=== PATIENT | male | born 1980 | race Caucasian/White ===

== ENCOUNTER 2016-08-25 20:32 | Emergency (ER) | payer OTHER ==
[2016-08-25 20:37] VITALS: BP 135/82; PULSE 84; RESP 18; TEMP 98.3
--- NOTE | 2016-08-25 20:48 | ED ---
Extremity Problem HPI - General Chief complaint: Extremity Problem,Nontraumatic Stated complaint: Leg Swelling/Pain Time Seen by Provider: 08/25/16 20:39 Source: patient, RN notes reviewed Mode of arrival: wheelchair Limitations: no limitations - History of Present Illness Initial comments: 36-year-old male presents to the emergency Department chief complaint of left lateral knee pain and swelling. Patient states noticed the last 2 days. Patient is a week ago he did hit the front of his calf. Patient states his pain extending all along the back of his leg. He noticed more tenderness along the medial aspect and the lower ankle area. Patient denies any injury besides about one week ago. Patient states she was concerned due to the swelling and the pains without that he should be evaluated.Patient denies any recent fever, chills, shortness of breath, chest pain, back pain, abdominal pain, nausea vomiting, numbness or tingling, dysuria or hematuria, constipation or diarrhea, headaches or visual changes, or any other current symptoms. - Related Data Home Medications Medication Instructions Recorded Confirmed Nicotine 14Mg/24Hr Patch [Habitrol 1 patch TRANSDERM DAILY 08/25/16 08/25/16 14Mg/24Hr Patch] Allergies Allergy/AdvReac Type Severity Reaction Status Date / Time Fish Containing Products Allergy Swelling Verified 08/25/16 20:49 [Fish] Review of Systems ROS Statement: Those systems with pertinent positive or pertinent negative responses have been documented in the HPI. ROS Other: All systems not noted in ROS Statement are negative. Past Medical History Past Medical History: Asthma History of Any Multi-Drug Resistant Organisms: None Reported Past Surgical History: No Surgical Hx Reported Past Psychological History: Bipolar Smoking Status: Former smoker Past Alcohol Use History: None Reported Past Drug Use History: None Reported General Exam - General Exam Comments Initial Comments: General: The patient is awake and alert, in no distress, and does not appear acutely ill. Neck: The neck is supple, there is no tenderness. Cardiovascular: There is a regular rate and rhythm. No murmur, rub or gallop is appreciated. Respiratory: Lungs are clear to auscultation, respirations are non-labored, breath sounds are equal. No wheezes, stridor, rales, or rhonchi. Musculoskeletal: Sensation intact with 2+ pulses throughout the left lower externa. Full range of motion of left knee and left ankle. Patient has no noticeable swelling noted and negative Homans sign. Patient does have tenderness along the distal tibia medially. There does appear to be a healing abrasion to the anterior left estevez as well. 5 Out of 5 muscle strength testing throughout. Neurological: CN II-XII intact, There are no obvious motor or sensory deficits. Coordination appears grossly intact. Speech is normal. Skin: Skin is warm and dry and no rashes or lesions are noted. Psychiatric: Normal mood and affect. Limitations: no limitations Course Vital Signs 08/25/16 20:34 Temperature 98.3 F Pulse Rate 84 Respiratory 18 Rate Blood Pressure 135/82 O2 Sat by Pulse 99 Oximetry Medical Decision Making - Medical Decision Making 36-year-old male presents emergency Department chief complaint of left leg pain. we discussed X-ray and ultrasound are reviewed and negative. Patient most likely has a left estevez contusion from the injury about one week ago. We discussed ice Motrin Tylenol. We discussed return for hours and follow-up. We discussed all the family's questions and concerns. They stated they understood and all questions have been answered. They will be discharged home. - Radiology Data Radiology results: report reviewed, image reviewed Disposition Clinical Impression: Contusion of left ankle Disposition: HOME SELF-CARE Condition: Stable Instructions: Contusion in Adults (ED) Additional Instructions: Please use medication as discussed. Please follow up with family doctor if symptoms have not improved over the next two days. Please return to the emergency room if your symptoms increase or worsen or for any other concerns. Referrals: Mary Munoz MD [Primary Care Provider] - 1-2 days Time of Disposition: 21:37
--- NOTE | 2016-08-25 20:52 | XR ---
EXAMINATION TYPE: XR tibia fibula LT DATE OF EXAM: 08/25/2016 8:49 PM CLINICAL HISTORY: pain TECHNIQUE: AP and lateral images of the left tibia and fibula are obtained. COMPARISON: None. FINDINGS: There is no acute fracture/dislocation evident. The joint spaces appear within normal salas its. The overlying soft tissue appears unremarkable. IMPRESSION: There is no acute fracture or dislocation seen. ICD 10 NO FRACTURE, INITIAL EVALUATION
--- NOTE | 2016-08-25 21:36 | US ---
EXAMINATION TYPE: US venous doppler duplex LE LT DATE OF EXAM: 08/25/2016 8:43 PM COMPARISON: NONE CLINICAL HISTORY: Pain and swelling left leg. SIDE PERFORMED: Left TECHNIQUE: The lower extremity deep venous system is examined utilizing real time linear array sonog darin with graded compression, doppler sonography and color-flow sonography. VESSELS IMAGED: External Iliac Vein (EIV) Common Femoral Vein Deep Femoral Vein Greater Saphenous Vein * Femoral Vein Popliteal Vein Small Saphenous Vein * Proximal Calf Veins (* superficial vessels) Left Leg: Negative for DVT IMPRESSION: No evidence for DVT at this time.
== END 2016-08-25 21:41 | disposition home or self-care (01) ==
LOC: EC 20:32
DX: S90.02XA Contusion of left ankle, initial encounter (principal); Z87.891 Personal history of nicotine dependence; Z79.899 Other long term (current) drug therapy; Z91.013 Allergy to seafood; X58.XXXA Exposure to other specified factors, initial encounter
CPT/HCPCS: 99284

== ENCOUNTER → 2016-12-15 | Outpatient (CLI) | payer OTHER ==
[2016-12-15 14:03] LABS: Basophils # (A) 0.1 k/uL (0-0.2); Basophils % (A) 1 %; CH 31.1; CHCM 34.1; Eosinophils # (A) 0.3 k/uL (0-0.7); Eosinophils % (A) 2 %; HCT 52.9 % (39.0-53.0); HDW 2.51; HGB 17.3 gm/dL (13.0-17.5); Luc % (Auto) 2; Lymphocytes % (A) 16 %; MCH 29.9 pg (25.0-35.0); MCHC 32.7 g/dL (31.0-37.0); MCV 91.5 fL (80.0-100.0); Mean Platelet Volume 8.1; Monocytes # (A) 0.7 k/uL (0-1.0); Monocytes % (A) 5 %; Neutrophils # (A) 9.7 k/uL (1.3-7.7); Neutrophils % (A) 75 %; RBC 5.78 m/uL (4.30-5.90); RDW 13.8 % (11.5-15.5); WBC 12.9 k/uL (3.8-10.6); WBC (Perox) 12.99
[2016-12-15 14:48] LABS: Anion Gap 12 mmol/L; Blood Urea Nitrogen 12 mg/dL (9-20); Calcium 10.1 mg/dL (8.4-10.2); Carbon Dioxide 28 mmol/L (22-30); Chloride 106 mmol/L (98-107); Glucose 84 mg/dL (74-99); Non-African American GFR(MDRD) >60 (>60 ml/min/1.73 sqM); Sodium 146 mmol/L (137-145)
== END | disposition home or self-care (01) ==
LOC: LABPAT 13:20
PROVIDERS: ATTEND Physician Assistant
DX: Z01.812 Encounter for preprocedural laboratory examination (principal); N20.0 Calculus of kidney; R35.0 Frequency of micturition
CPT/HCPCS: 80048; 85025

== ENCOUNTER 2016-12-21 09:23 | Day surgery (SDC) | payer OTHER ==
--- NOTE | 2016-12-21 08:58 | XR ---
EXAMINATION TYPE: XR KUB DATE OF EXAM: 12/21/2016 COMPARISON: 11/10/2018 HISTORY: Left-sided renal stone with pain TECHNIQUE: One view abdominal series FINDINGS: The osseous structures are intact. The bowel gas pattern is nonspecific. Lung bases are clear. There is a 4.2 mm mid pole left renal calculus. IMPRESSION: 1. There is a 4.2 mm left midpole renal calculus.
[2016-12-21 09:21] VITALS: RESP 16; TEMP 97.7
[~2016-12-21 09:23] MED LIST: DEXAMETHASONE SOD PHOSPHATE 10 MG/ML 1 ML VIAL IV ONE; HYDROmorphone 1 MG/ML 1 ML SYRINGE IVP PRN; LACTATED RINGERS 1,000 ML IV SCH; LIDOCAINE 1% 20 ML VIAL (10MG/ML) FOR IV START INTRADERMA PRN; Pre Op ABX Message 1 EACH MISC MISCELLANE ONE; SCOPOLAMINE 1.5MG/72HR PATCH TRANSDERM ONE
[2016-12-21] MEDS ORDERED: fentaNYL (PF) 50 MCG/ML 2 ML AMP ONE (09:32)
[2016-12-21] MEDS ORDERED: KETAMINE 10 MG/ML 20 ML VIAL ONE (09:32)
[2016-12-21] MEDS ORDERED: PROPOFOL 10 MG/ML 20 ML VIAL IV ONE (09:32)
[2016-12-21] MEDS ORDERED: MIDAZOLAM 2 MG/2 ML VIAL ONE (09:32)
[2016-12-21] MEDS: LACTATED RINGERS 1,000 ML IV ONE (10:20)
[2016-12-21] MEDS ORDERED: SODIUM CHLORIDE 0.9% 1,000 ML IV ONE (10:20)
--- NOTE | 2016-12-21 10:26 | P.OP ---
Date of Procedure: 12/21/16 Preoperative Diagnosis: Left renal calculus Postoperative Diagnosis: Left renal calculus Procedure(s) Performed: Extracorporal shockwave lithotripsy Implants: Anesthesia: MAC Surgeon: Bo Jerez Pathology: none sent Condition: stable Disposition: PACU Indications for Procedure: Operative Findings: The patient is a 36 year old male with recent left flank pain who was noted to have a 7 mm calculus in the lateral midpole of the left kidney on a CT scan. It is unclear whether the calculus is located in a calyceal diverticulum. ESWL is planned for treatment. The patient was taken to the operating suite where intravenous sedation was given. Patient was placed in the supine position on the fluoroscopy table. The calculus in the lateral left kidney was localized using biplanar fluoroscopy. Lithotripsy was performed using the Dornier compact delta unit. Patient received 2500 shocks at level 5 at a rate of 60 shocks per minute. There appeared to be good fragmentation of the calculus. Anesthesia was reversed and the patient was returned to the recovery room awake and in satisfactory condition. The patient will be seen back in 4 days at which time time a KUB will be obtained. Description of Procedure:
[2016-12-21 11:13] VITALS: BP 130/85; PULSE 80
== END 2016-12-21 11:32 | disposition home or self-care (01) ==
LOC: ORWHC2ENDO 09:23
PROVIDERS: ATTEND Urology
DX: N20.0 Calculus of kidney (principal); Z84.2 Family history of other diseases of the genitourinary system; Z79.2 Long term (current) use of antibiotics; F17.200 Nicotine dependence, unspecified, uncomplicated
CPT/HCPCS: 74000; 50590; J2250; J1100; J3010; J2704

== ENCOUNTER 2016-12-25 16:59 | Emergency (ER) | payer OTHER ==
[2016-12-25] MEDS ORDERED: LORazepam 2 MG/ML SYRINGE IV STA (17:25)
[2016-12-25] MEDS ORDERED: MORPHINE SULFATE 4 MG/ML SYRINGE IVP STA (17:25)
[2016-12-25 17:27] LABS: Basophils # (A) 0.1 k/uL (0-0.2); Basophils % (A) 1 %; CH 31.4; CHCM 34.9; Eosinophils # (A) 0.4 k/uL (0-0.7); Eosinophils % (A) 4 %; HCT 52.9 % (39.0-53.0); HDW 2.56; HGB 17.7 gm/dL (13.0-17.5); Luc % (Auto) 2; Lymphocytes # (A) 3.2 k/uL (1.0-4.8); Lymphocytes % (A) 32 %; MCH 30.2 pg (25.0-35.0); MCHC 33.4 g/dL (31.0-37.0); MCV 90.4 fL (80.0-100.0); Mean Platelet Volume 8.2; Monocytes # (A) 0.6 k/uL (0-1.0); Monocytes % (A) 6 %; Neutrophils # (A) 5.5 k/uL (1.3-7.7); Neutrophils % (A) 56 %; RBC 5.85 m/uL (4.30-5.90); RDW 14.5 % (11.5-15.5); WBC 9.9 k/uL (3.8-10.6); WBC (Perox) 9.73
[2016-12-25] MEDS ORDERED: ACETAMINOPHEN IV (For NPO) 1,000 MG in EMPTY BAG 1 BAG IVPB STA (17:28)
[2016-12-25] MEDS ORDERED: ceFAZolin 2 GM in SODIUM CHLORIDE 0.9% 100 ML IVPB STA (17:29)
[2016-12-25 17:36] LABS: Partial Thromboplastin Time 23.5 sec (22.0-30.0); Prothrombin Time 10.4 sec (9.0-12.0)
[2016-12-25 17:37] LABS: AST 23 U/L (17-59); Alcohol <10 mg/dL; Alkaline Phosphatase 63 U/L (38-126); Amylase <30 U/L (30-110); Anion Gap 10 mmol/L; Blood Urea Nitrogen 9 mg/dL (9-20); Calcium 9.4 mg/dL (8.4-10.2); Carbon Dioxide 26 mmol/L (22-30); Chloride 105 mmol/L (98-107); Glucose 87 mg/dL (74-99); Non-African American GFR(MDRD) >60 (>60 ml/min/1.73 sqM); Potassium 4.4 mmol/L (3.5-5.1); Sodium 141 mmol/L (137-145); Total Bilirubin 0.3 mg/dL (0.2-1.3); Total Protein 6.5 g/dL (6.3-8.2)
[2016-12-25 17:37] LABS: Glucose,Whole Blood 111 mg/dL (75-99)
[2016-12-25 17:42] LABS: ALT 36 U/L (21-72)
[2016-12-25 17:47] LABS: Creatine Kinase 61 U/L (55-170)
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
[2016-12-25 18:00] LABS: Troponin I <0.012 ng/mL (0.000-0.034)
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
[2016-12-25] MEDS ORDERED: SODIUM CHLORIDE 0.9% 500 ML IV STA (18:23)
[2016-12-25] MEDS ORDERED: SODIUM CHLORIDE 0.9% 1,000 ML IV STA (18:23)
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
[2016-12-25] MEDS ORDERED: DIPH,PERTUS(ACELL)TETVAC-LF 0.5 ML VIAL IM ONE (19:04)
[2016-12-25 19:35] VITALS: BP 169/75; PULSE 90; RESP 16; TEMP 97.5
== END 2016-12-25 19:35 | disposition home or self-care (01) ==
LOC: EC 16:59
DX: S80.811A Abrasion, right lower leg, initial encounter (principal); M54.2 Cervicalgia; F17.200 Nicotine dependence, unspecified, uncomplicated; Z91.013 Allergy to seafood; Z23 Encounter for immunization; V89.2XXA Person injured in unspecified motor-vehicle accident, traffic, initial encounter; Y92.89 Other specified places as the place of occurrence of the external cause
CPT/HCPCS: 36415; 93005; 86900; 86901; 80053; 82150; 82550; 82553; 83605; 83690; 84484; 85025; 85610; 85730; 86850; 80320; 71010; 72170; 73590; 72125; 70450; 90715; 99285; 96365; 96375 ×3; 90471; J2060; J2270; J0690; J0131

== ENCOUNTER → 2016-12-25 | Outpatient (CLI) | payer OTHER ==
--- NOTE | 2016-12-25 10:52 | XR ---
EXAMINATION TYPE: XR abdomen 1V DATE OF EXAM: 12/25/2016 COMPARISON: NONE HISTORY: Post lithotripsy. Left-sided nephrolithiasis. TECHNIQUE: Single view supine abdominal radiograph was obtained. FINDINGS: The previously seen left renal calculus is no longer evident. No calcification is seen servando g the course of the left collecting system or within the urinary bladder. Osseous structures appear i ntact. Bowel gas pattern is nonobstructive. Mild degenerative changes of the femoral acetabular joint s are seen. IMPRESSION: Resolution of the previously seen left renal calculus, post lithotripsy, with no residual calculus along path of the left collecting system.
== END ==
LOC: RADXRMAIN 10:29
PROVIDERS: ATTEND Urology
DX: N20.0 Calculus of kidney (principal)
CPT/HCPCS: 74000

== ENCOUNTER 2017-02-01 19:53 | Emergency (ER) | payer OTHER ==
[2017-02-01 21:47] VITALS: RESP 18
[2017-02-01] MEDS ORDERED: SODIUM CHLORIDE 0.9% 2,000 ML IV STA (21:51)
[2017-02-01] MEDS ORDERED: FAMOTIDINE 20 MG/2 ML VIAL IV STA (22:14)
[2017-02-01] MEDS ORDERED: LIDOCAINE VISCOUS 2% 15 ML CUP MUCOUS MEM ONE (22:14)
[2017-02-01] MEDS ORDERED: MAG HYDROX/AL HYDROX/SIMETH 30 ML CUP PO ONE (22:14)
[2017-02-01] MEDS ORDERED: ONDANSETRON 4 MG/2 ML VIAL IVP STA (22:14)
--- NOTE | 2017-02-01 22:25 | ED ---
Abdominal Pain HPI - General Chief Complaint: Abdominal Pain Stated Complaint: Dizzy/Abd Pain Time Seen by Provider: 02/01/17 21:35 Source: patient Mode of arrival: ambulatory Limitations: no limitations - History of Present Illness Initial Comments: Patient presents with epigastric abdominal pain that he said started shortly after waking up this morning. Denies prior history of abdominal problems or abdominal surgeries. Denies history of liver disease, acid reflux, stomach ulcers. Patient admits to nausea but no vomiting. Patient states she has had decreased appetite today, mild nausea. Denies fevers, chills, changes in bowel movements, blood in the stool, changes in urination. She denies sick contacts, trauma, suspicious food intake. MD Complaint: abdominal pain Onset/Timin -: days(s) Location: epigastric Radiation: none Migration to: no migration Severity: moderate Quality: burning Consistency: constant Improves With: other (None tried) Associated Symptoms: nausea Treatments Prior to Arrival: other (None) - Related Data Home Medications Medication Instructions Recorded Confirmed Venlafaxine HCl [Effexor XR] 75 mg PO DAILY 02/01/17 02/01/17 traZODone HCL 50 mg PO HS 02/01/17 02/01/17 Previous Rx's Medication Instructions Recorded Ondansetron Odt [Zofran Odt] 4 mg PO Q8HR PRN #12 tab 02/01/17 Allergies Allergy/AdvReac Type Severity Reaction Status Date / Time Fish Containing Products Allergy Swelling Verified 02/01/17 21:38 [Fish] Review of Systems ROS Statement: Those systems with pertinent positive or pertinent negative responses have been documented in the HPI. ROS Other: All systems not noted in ROS Statement are negative. Constitutional: Denies: fever, chills, weakness Eyes: Denies: vision change ENT: Denies: throat pain, congestion Respiratory: Denies: cough, dyspnea Cardiovascular: Denies: chest pain, palpitations Endocrine: Denies: fatigue Gastrointestinal: Reports: abdominal pain, nausea. Denies: vomiting, diarrhea, constipation, hematemesis, melena, hematochezia Genitourinary: Denies: urgency, dysuria, frequency, hematuria Musculoskeletal: Denies: back pain Skin: Denies: rash Neurological: Denies: headache, weakness, confusion Past Medical History Past Medical History: Asthma History of Any Multi-Drug Resistant Organisms: None Reported Past Surgical History: No Surgical Hx Reported Past Psychological History: Bipolar Smoking Status: Current every day smoker Past Alcohol Use History: None Reported Past Drug Use History: None Reported General Exam Limitations: no limitations General appearance: alert, in no apparent distress, other (Sitting up in bed. No acute distress. Conversing normally. Not ill appearing. Calm, pleasant.) Head exam: Present: atraumatic, normocephalic Eye exam: Present: normal appearance, PERRL ENT exam: Present: normal oropharynx, normal external ear exam Neck exam: Present: normal inspection. Absent: tenderness Respiratory exam: Present: normal lung sounds bilaterally. Absent: respiratory distress, wheezes, rales Cardiovascular Exam: Present: regular rate, normal rhythm GI/Abdominal exam: Present: soft, tenderness (Minimal epigastric tenderness), normal bowel sounds. Absent: distended, guarding, rebound, rigid Extremities exam: Present: normal inspection Neurological exam: Present: alert, oriented X3 Psychiatric exam: Present: normal affect, normal mood Skin exam: Present: warm, dry, intact Course Vital Signs 02/01/17 02/01/17 02/01/17 20:07 21:42 22:35 Temperature 99.7 F H Pulse Rate 105 H 89 77 Respiratory 20 18 18 Rate Blood Pressure 126/82 135/89 123/80 O2 Sat by Pulse 99 97 95 Oximetry 02/01/17 23:27 Temperature Pulse Rate 92 Respiratory 18 Rate Blood Pressure 113/69 O2 Sat by Pulse 98 Oximetry Medical Decision Making - Medical Decision Making Patient has minimal epigastric tenderness, no distention, bowel sounds normal. Not feel patient has signs of obstruction or bowel perforation. Will obtain lab work. Patient given IV fluids, Pepcid, Maalox, Zofran. Blood cell count mildly elevated, UA and other lab work normal. Patient reassessed, states symptoms significantly improved status post meds. Patient symptoms may be secondary to viral gastritis. Patient agrees to follow-up with his primary care physician, return to ED if new or worsening symptoms. We'll give prescription for Zofran for home. Discussed need for oral rehydration. Return to ED if unable to tolerate by mouth intake. Patient is tenderness to palpation resolved on reexamination. Discharged at this time. - Lab Data Result diagrams: 02/01/17 22:00 02/01/17 22:00 Lab Results 02/01/17 02/01/17 02/01/17 Range/Units 22:00 22:00 22:43 WBC 13.0 H (3.8-10.6) k/uL RBC 6.01 H (4.30-5.90) m/uL Hgb 18.3 H (13.0-17.5) gm/dL Hct 54.8 H (39.0-53.0) % MCV 91.2 (80.0-100.0) fL MCH 30.5 (25.0-35.0) pg MCHC 33.4 (31.0-37.0) g/dL RDW 13.4 (11.5-15.5) % Plt Count 232 (150-450) k/uL Neutrophils % 72 % Lymphocytes % 21 % Monocytes % 4 % Eosinophils % 1 % Basophils % 1 % Neutrophils # 9.3 H (1.3-7.7) k/uL Lymphocytes # 2.8 (1.0-4.8) k/uL Monocytes # 0.6 (0-1.0) k/uL Eosinophils # 0.1 (0-0.7) k/uL Basophils # 0.1 (0-0.2) k/uL Sodium 140 (137-145) mmol/L Potassium 4.2 (3.5-5.1) mmol/L Chloride 105 (98-107) mmol/L Carbon Dioxide 28 (22-30) mmol/L Anion Gap 7 mmol/L BUN 10 (9-20) mg/dL Creatinine 0.88 (0.66-1.25) mg/dL Est GFR (MDRD) Af Amer >60 (>60 ml/min/1.73 sqM) Est GFR (MDRD) Non-Af >60 (>60 ml/min/1.73 sqM) Glucose 98 (74-99) mg/dL Calcium 9.0 (8.4-10.2) mg/dL Total Bilirubin 0.2 (0.2-1.3) mg/dL AST 21 (17-59) U/L ALT 25 (21-72) U/L Alkaline Phosphatase 48 (38-126) U/L Total Protein 5.4 L (6.3-8.2) g/dL Albumin 3.1 L (3.5-5.0) g/dL Lipase 115 (23-300) U/L Urine Color Yellow Urine Appearance Clear (Clear) Urine pH 6.0 (5.0-8.0) Ur Specific [place] 1.020 (1.001-1.035) Urine Protein Negative (Negative) Urine Glucose (UA) Negative (Negative) Urine Ketones Negative (Negative) Urine Blood Negative (Negative) Urine Nitrite Negative (Negative) Urine Bilirubin Negative (Negative) Urine Urobilinogen 2.0 (<2.0) mg/dL Ur Leukocyte Esterase Negative (Negative) Disposition Clinical Impression: Abdominal pain Disposition: HOME SELF-CARE Condition: Good Instructions: Abdominal Pain (ED) Prescriptions: Ondansetron Odt [Zofran Odt] 4 mg PO Q8HR PRN #12 tab PRN Reason: Nausea And Vomiting Referrals: Mary Munoz MD [Primary Care Provider] - 1-2 days
[2017-02-01 22:29] LABS: Basophils # (A) 0.1 k/uL (0-0.2); Basophils % (A) 1 %; CH 30.6; CHCM 33.7; Eosinophils # (A) 0.1 k/uL (0-0.7); Eosinophils % (A) 1 %; HCT 54.8 % (39.0-53.0); HDW 2.46; HGB 18.3 gm/dL (13.0-17.5); Luc # (Auto) 0.16; Luc % (Auto) 1; Lymphocytes # (A) 2.8 k/uL (1.0-4.8); Lymphocytes % (A) 21 %; MCH 30.5 pg (25.0-35.0); MCHC 33.4 g/dL (31.0-37.0); MCV 91.2 fL (80.0-100.0); Mean Platelet Volume 7.5; Monocytes # (A) 0.6 k/uL (0-1.0); Monocytes % (A) 4 %; Neutrophils # (A) 9.3 k/uL (1.3-7.7); Neutrophils % (A) 72 %; RBC 6.01 m/uL (4.30-5.90); RDW 13.4 % (11.5-15.5); WBC (Perox) 12.53
[2017-02-01 22:39] LABS: ALT 25 U/L (21-72); AST 21 U/L (17-59); Alkaline Phosphatase 48 U/L (38-126); Anion Gap 7 mmol/L; Blood Urea Nitrogen 10 mg/dL (9-20); Carbon Dioxide 28 mmol/L (22-30); Chloride 105 mmol/L (98-107); Glucose 98 mg/dL (74-99); Non-African American GFR(MDRD) >60 (>60 ml/min/1.73 sqM); Potassium 4.2 mmol/L (3.5-5.1); Sodium 140 mmol/L (137-145); Total Bilirubin 0.2 mg/dL (0.2-1.3); Total Protein 5.4 g/dL (6.3-8.2)
[2017-02-01 22:55] LABS: Appearance,Urine Clear (Clear); Bilirubin,Urine Negative (Negative); Glucose,Urine (UA) Negative (Negative); Ketones,Urine Negative (Negative); Leukocyte Esterase,Urine Negative (Negative); Nitrite,Urine Negative (Negative); Protein,Urine Negative (Negative); UA Billing (MACRO vs. MICRO) CHEM
[2017-02-02 00:13] VITALS: BP 115/67; PULSE 88; TEMP 98.6
== END 2017-02-02 00:47 | disposition home or self-care (01) ==
LOC: EC 19:53
DX: R10.13 Epigastric pain (principal); R11.0 Nausea; R63.0 Anorexia; F31.9 Bipolar disorder, unspecified; F17.200 Nicotine dependence, unspecified, uncomplicated; Z79.899 Other long term (current) drug therapy; Z91.013 Allergy to seafood
CPT/HCPCS: 96361 ×3; 96374 ×2; 96375 ×2; 99284 ×2; 36415; 80053; 83690; 85025; 81003; J2405

== ENCOUNTER 2017-02-21 20:22 | Emergency (ER) | payer OTHER ==
[2017-02-21] MEDS ORDERED: PANTOPRAZOLE 40 MG/10 ML VIAL IVP STA (21:02)
[2017-02-21] MEDS ORDERED: SODIUM CHLORIDE 0.9% 1,000 ML IV STA (21:02)
[2017-02-21] MEDS ORDERED: ONDANSETRON 4 MG/2 ML VIAL IVP STA (21:02)
[2017-02-21] MEDS ORDERED: RX INFO: IV CONTRAST WAS GIVEN 1 EACH MISC MISCELLANE PRN (21:03)
--- NOTE | 2017-02-21 21:09 | ED ---
GI Bleed HPI - General Chief complaint: GI Bleed Stated complaint: Vomiting Blood Time Seen by Provider: 02/21/17 20:46 Source: patient, RN notes reviewed Mode of arrival: ambulatory Limitations: no limitations - History of Present Illness Initial comments: 36-year-old male presents emergency Department chief complaint abdominal discomfort, nausea, hematemesis. Patient states that he woke up did not feel well states he had an episode of vomiting states it was mostly phlegm with some speckled red areas. Patient went of epigastric discomfort and some lower abdominal pain. Patient had recent ER visit for some her symptoms. Patient did admit to or taking trazodone this past week and states that he was trying to harm himself at that time he was seen by his therapist who felt that he was stable did not need inpatient treatment his medications are now controlled by family. Patient denies suicidal or homicidal ideation. Patient denies any history of GERD or peptic ulcer disease. Patient states he did have some pain radiating up his chest with denies any shortness breath or any palpitations. He denies any diarrhea, constipation, melena or hematochezia. - Related Data Home Medications Medication Instructions Recorded Confirmed Venlafaxine HCl [Effexor XR] 75 mg PO DAILY 02/01/17 02/21/17 traZODone HCL [Desyrel] 100 mg PO HS 02/21/17 02/21/17 Previous Rx's Medication Instructions Recorded Omeprazole 40 mg PO DAILY #14 capsule. 02/21/17 Ondansetron Odt [Zofran Odt] 4 mg PO Q8HR PRN #10 tab 02/21/17 Allergies Allergy/AdvReac Type Severity Reaction Status Date / Time Fish Containing Products Allergy Swelling Verified 02/21/17 20:47 [Fish] Review of Systems ROS Statement: Those systems with pertinent positive or pertinent negative responses have been documented in the HPI. ROS Other: All systems not noted in ROS Statement are negative. Past Medical History Past Medical History: Asthma History of Any Multi-Drug Resistant Organisms: None Reported Past Surgical History: No Surgical Hx Reported Past Psychological History: Bipolar Smoking Status: Current every day smoker Past Alcohol Use History: None Reported Past Drug Use History: None Reported General Exam Limitations: no limitations General appearance: alert, in no apparent distress Head exam: Present: atraumatic, normocephalic, normal inspection Neck exam: Present: normal inspection, full ROM. Absent: tenderness, meningismus, lymphadenopathy Respiratory exam: Present: normal lung sounds bilaterally. Absent: respiratory distress, wheezes, rales, rhonchi, stridor Cardiovascular Exam: Present: regular rate, normal rhythm, normal heart sounds. Absent: systolic murmur, diastolic murmur, rubs, gallop, clicks GI/Abdominal exam: Present: soft, tenderness (Moderate epigastric), normal bowel sounds. Absent: distended, guarding, rebound, rigid Back exam: Absent: CVA tenderness (R), CVA tenderness (L) Skin exam: Present: warm, dry, intact, normal color. Absent: rash Course Vital Signs 02/21/17 02/21/17 20:28 22:37 Temperature 98.7 F 97.8 F Pulse Rate 96 78 Respiratory 16 18 Rate Blood Pressure 131/89 118/58 O2 Sat by Pulse 97 98 Oximetry Medical Decision Making - Medical Decision Making 36-year-old male present emergency department for episode of hematemesis. It was mixed in within sputum, emesis. Patient's labwork is unremarkable. Patient may have some evidence of gastritis. Patient was started on omeprazole daily, Zofran and follow up outpatient. Return parameters discussed. - Lab Data Result diagrams: 02/21/17 21:14 02/21/17 21:14 Lab Results 02/21/17 02/21/17 02/21/17 Range/Units 21:14 21:14 21:14 WBC 9.7 (3.8-10.6) k/uL RBC 5.29 (4.30-5.90) m/uL Hgb 16.2 (13.0-17.5) gm/dL Hct 47.8 (39.0-53.0) % MCV 90.5 (80.0-100.0) fL MCH 30.6 (25.0-35.0) pg MCHC 33.8 (31.0-37.0) g/dL RDW 13.2 (11.5-15.5) % Plt Count 281 (150-450) k/uL Neutrophils % 66 % Lymphocytes % 24 % Monocytes % 6 % Eosinophils % 2 % Basophils % 1 % Neutrophils # 6.4 (1.3-7.7) k/uL Lymphocytes # 2.4 (1.0-4.8) k/uL Monocytes # 0.6 (0-1.0) k/uL Eosinophils # 0.2 (0-0.7) k/uL Basophils # 0.1 (0-0.2) k/uL PT (9.0-12.0) sec INR (<1.2) APTT (22.0-30.0) sec Sodium 139 (137-145) mmol/L Potassium 4.2 (3.5-5.1) mmol/L Chloride 107 (98-107) mmol/L Carbon Dioxide 26 (22-30) mmol/L Anion Gap 6 mmol/L BUN 9 (9-20) mg/dL Creatinine 1.10 (0.66-1.25) mg/dL Est GFR (MDRD) Af Amer >60 (>60 ml/min/1.73 sqM) Est GFR (MDRD) Non-Af >60 (>60 ml/min/1.73 sqM) Glucose 86 (74-99) mg/dL Calcium 9.2 (8.4-10.2) mg/dL Magnesium 1.9 (1.6-2.3) mg/dL Total Bilirubin 0.2 (0.2-1.3) mg/dL AST 20 (17-59) U/L ALT 26 (21-72) U/L Alkaline Phosphatase 55 (38-126) U/L Total Creatine Kinase 97 (55-170) U/L CK-MB (CK-2) 0.8 (0.0-2.4) ng/mL CK-MB (CK-2) Rel Index 0.8 Troponin I <0.012 (0.000-0.034) ng/mL Total Protein 5.6 L (6.3-8.2) g/dL Albumin 3.3 L (3.5-5.0) g/dL Lipase 121 (23-300) U/L 02/21/17 Range/Units 21:14 WBC (3.8-10.6) k/uL RBC (4.30-5.90) m/uL Hgb (13.0-17.5) gm/dL Hct (39.0-53.0) % MCV (80.0-100.0) fL MCH (25.0-35.0) pg MCHC (31.0-37.0) g/dL RDW (11.5-15.5) % Plt Count (150-450) k/uL Neutrophils % % Lymphocytes % % Monocytes % % Eosinophils % % Basophils % % Neutrophils # (1.3-7.7) k/uL Lymphocytes # (1.0-4.8) k/uL Monocytes # (0-1.0) k/uL Eosinophils # (0-0.7) k/uL Basophils # (0-0.2) k/uL PT 10.0 (9.0-12.0) sec INR 1.0 (<1.2) APTT 23.2 (22.0-30.0) sec Sodium (137-145) mmol/L Potassium (3.5-5.1) mmol/L Chloride (98-107) mmol/L Carbon Dioxide (22-30) mmol/L Anion Gap mmol/L BUN (9-20) mg/dL Creatinine (0.66-1.25) mg/dL Est GFR (MDRD) Af Amer (>60 ml/min/1.73 sqM) Est GFR (MDRD) Non-Af (>60 ml/min/1.73 sqM) Glucose (74-99) mg/dL Calcium (8.4-10.2) mg/dL Magnesium (1.6-2.3) mg/dL Total Bilirubin (0.2-1.3) mg/dL AST (17-59) U/L ALT (21-72) U/L Alkaline Phosphatase (38-126) U/L Total Creatine Kinase (55-170) U/L CK-MB (CK-2) (0.0-2.4) ng/mL CK-MB (CK-2) Rel Index Troponin I (0.000-0.034) ng/mL Total Protein (6.3-8.2) g/dL Albumin (3.5-5.0) g/dL Lipase (23-300) U/L 02/21/17 21:38 EKG performed at 21:08 normal sinus rhythm with rate of 83 [place] interval 136 QRS duration 94 QT/QTC 338/397 Disposition Clinical Impression: Abdominal pain, Gastritis Disposition: HOME SELF-CARE Condition: Stable Instructions: Gastritis (ED) Additional Instructions: Please return to the Emergency Department if symptoms worsen or any other concerns. Prescriptions: Omeprazole 40 mg PO DAILY #14 capsule. Ondansetron Odt [Zofran Odt] 4 mg PO Q8HR PRN #10 tab PRN Reason: Nausea Referrals: Mary Munoz MD [Primary Care Provider] - 1-2 days Linh Thomas MD [STAFF PHYSICIAN] - 1-2 days Time of Disposition: 22:57
[2017-02-21 21:32] LABS: Basophils # (A) 0.1 k/uL (0-0.2); Basophils % (A) 1 %; CH 30.5; CHCM 33.9; Eosinophils # (A) 0.2 k/uL (0-0.7); Eosinophils % (A) 2 %; HCT 47.8 % (39.0-53.0); HDW 2.59; HGB 16.2 gm/dL (13.0-17.5); Luc # (Auto) 0.14; Luc % (Auto) 1; Lymphocytes # (A) 2.4 k/uL (1.0-4.8); Lymphocytes % (A) 24 %; MCH 30.6 pg (25.0-35.0); MCHC 33.8 g/dL (31.0-37.0); MCV 90.5 fL (80.0-100.0); Mean Platelet Volume 7.5; Monocytes # (A) 0.6 k/uL (0-1.0); Monocytes % (A) 6 %; Neutrophils # (A) 6.4 k/uL (1.3-7.7); Neutrophils % (A) 66 %; RBC 5.29 m/uL (4.30-5.90); RDW 13.2 % (11.5-15.5); WBC 9.7 k/uL (3.8-10.6); WBC (Perox) 9.37
[2017-02-21 21:41] LABS: Partial Thromboplastin Time 23.2 sec (22.0-30.0)
--- NOTE | 2017-02-21 21:42 | XR ---
EXAMINATION TYPE: XR chest 2V DATE OF EXAM: 02/21/2017 COMPARISON: NONE HISTORY: Vomiting blood with upper abdominal and chest pain. History of syncope. TECHNIQUE: Frontal and lateral views of the chest are obtained. FINDINGS: There is no focal air space opacity, pleural effusion, or pneumothorax seen. The cardiac silhouette size is within normal limits. The osseous structures are intact. IMPRESSION: No acute cardiopulmonary process.
[2017-02-21 21:48] LABS: ALT 26 U/L (21-72); AST 20 U/L (17-59); Alkaline Phosphatase 55 U/L (38-126); Anion Gap 6 mmol/L; Blood Urea Nitrogen 9 mg/dL (9-20); Calcium 9.2 mg/dL (8.4-10.2); Carbon Dioxide 26 mmol/L (22-30); Chloride 107 mmol/L (98-107); Glucose 86 mg/dL (74-99); Magnesium 1.9 mg/dL (1.6-2.3); Non-African American GFR(MDRD) >60 (>60 ml/min/1.73 sqM); Potassium 4.2 mmol/L (3.5-5.1); Sodium 139 mmol/L (137-145); Total Bilirubin 0.2 mg/dL (0.2-1.3); Total Protein 5.6 g/dL (6.3-8.2)
[2017-02-21 21:57] LABS: Creatine Kinase 97 U/L (55-170)
--- NOTE | 2017-02-21 22:08 | CT ---
EXAMINATION TYPE: CT abdomen pelvis w con DATE OF EXAM: 02/21/2017 COMPARISON: NONE HISTORY: Epigastric pain and vomiting blood today. CT DLP: 687.20 mGycm Automated exposure control for dose reduction was used. TECHNIQUE: Helical acquisition of images was performed from the lung bases through the pelvis. CONTRAST: Performed without Oral Contrast and with IV Contrast, patient injected with 100 mL of Omnipaque 300. FINDINGS: LUNG BASES: No significant abnormality is appreciated. LIVER/GB: No significant abnormality is appreciated. PANCREAS: No significant abnormality is seen. SPLEEN: No significant abnormality is seen. ADRENALS: No significant abnormality is seen. KIDNEYS: No significant abnormality is seen. Symmetric enhancement and excretion are noted. FREE AIR: No free air is visualized. RETROPERITONEAL ADENOPATHY: None visualized REPRODUCTIVE ORGANS: No significant abnormality is seen URINARY BLADDER: No significant abnormality is seen. PELVIC ADENOPATHY: None visualized. OSSEOUS STRUCTURES: No significant abnormality is seen. BOWEL: No significant abnormality is seen. A normal appendix is identified. OTHER: Fat filled umbilical hernia is present. Prostate measures 4 cm in transverse dimension. IMPRESSION: ESSENTIALLY UNREMARKABLE EXAMINATION.
[2017-02-21 22:10] LABS: Creatine Kinase MB 0.8 ng/mL (0.0-2.4); Troponin I <0.012 ng/mL (0.000-0.034)
[2017-02-21 22:39] VITALS: BP 118/58; PULSE 78; RESP 18; TEMP 97.8
== END 2017-02-21 23:01 | disposition home or self-care (01) ==
LOC: EC 20:22
DX: K29.70 Gastritis, unspecified, without bleeding (principal); F31.9 Bipolar disorder, unspecified; F17.200 Nicotine dependence, unspecified, uncomplicated; Z79.899 Other long term (current) drug therapy; Z91.013 Allergy to seafood
CPT/HCPCS: 99285 ×2; 96374 ×2; 96375 ×2; 96361 ×2; 36415; 93005; 80053; 82550; 82553; 83690; 83735; 84484; 85025; 85610; 85730; 71020; 74177; J2405; Q9967; C9113

== ENCOUNTER 2017-04-02 13:52 | Emergency (ER) | payer OTHER ==
[2017-04-02 14:04] VITALS: BP 140/78; PULSE 131; RESP 17; TEMP 97.7
[2017-04-02] MEDS ORDERED: SODIUM CHLORIDE 0.9% 500 ML IV STA (14:18)
[2017-04-02] MEDS ORDERED: SODIUM CHLORIDE 0.9% 1,000 ML IV STA (14:18)
[2017-04-02] MEDS ORDERED: LORazepam 2 MG/ML INJ IV STA (14:18)
--- NOTE | 2017-04-02 14:47 | ED ---
General Adult HPI - General Chief complaint: Psychiatric Symptoms Stated complaint: Mental Health Time Seen by Provider: 04/02/17 13:54 Source: patient, EMS, RN notes reviewed, old records reviewed Mode of arrival: EMS Limitations: no limitations - History of Present Illness Initial comments: This is a 37-year-old male to the ER for evaluation of overdose. Patient did overdose in regards to psychiatric disease, patient today has tried To kill himself. Patient does have history of psychiatric evaluation. Patient denies drugs or alcohol. Patient does admit to overdose (account medication tonight - Related Data Home Medications Medication Instructions Recorded Confirmed Amoxicillin 500 mg PO Q8H 04/02/17 04/02/17 HYDROcodone/APAP 7.5-325MG [[place] 1 tab PO Q4H PRN 04/02/17 04/02/17 7.5-325] Ibuprofen [Motrin] 800 mg PO Q6H PRN 04/02/17 04/02/17 Previous Rx's Medication Instructions Recorded ARIPiprazole [Abilify] 5 mg PO DAILY #30 tab 02/26/17 Venlafaxine HCl [Effexor XR] 75 mg PO DAILY #30 cap.er.24h 02/26/17 traZODone HCL [Desyrel] 100 mg PO HS #30 tab 02/26/17 Allergies Allergy/AdvReac Type Severity Reaction Status Date / Time Fish Containing Products Allergy Swelling Verified 04/02/17 14:08 [Fish] Review of Systems ROS Statement: Those systems with pertinent positive or pertinent negative responses have been documented in the HPI. ROS Other: All systems not noted in ROS Statement are negative. Past Medical History Past Medical History: Asthma Additional Past Medical History / Comment(s): bipolar/depression, lt sided kidney stone History of Any Multi-Drug Resistant Organisms: None Reported Past Surgical History: No Surgical Hx Reported Additional Past Surgical History / Comment(s): lithotripsy Past Anesthesia/Blood Transfusion Reactions: No Reported Reaction Past Psychological History: Bipolar, Depression Smoking Status: Current every day smoker - Past Family History Father History Unknown: Yes Mother History Unknown: Yes General Exam Limitations: no limitations General appearance: alert, in no apparent distress Head exam: Present: atraumatic, normocephalic, normal inspection Eye exam: Present: normal appearance, PERRL, EOMI. Absent: scleral icterus, conjunctival injection, periorbital swelling ENT exam: Present: normal exam, mucous membranes moist Neck exam: Present: normal inspection. Absent: tenderness, meningismus, lymphadenopathy Respiratory exam: Present: normal lung sounds bilaterally. Absent: respiratory distress, wheezes, rales, rhonchi, stridor Cardiovascular Exam: Present: regular rate, normal rhythm, normal heart sounds. Absent: systolic murmur, diastolic murmur, rubs, gallop, clicks GI/Abdominal exam: Present: soft, normal bowel sounds. Absent: distended, tenderness, guarding, rebound, rigid Extremities exam: Present: normal inspection, full ROM, normal capillary refill. Absent: tenderness, pedal edema, joint swelling, calf tenderness Back exam: Present: normal inspection Neurological exam: Present: alert, oriented X3, CN II-XII intact Psychiatric exam: Present: normal affect, normal mood Skin exam: Present: warm, dry, intact, normal color. Absent: rash Course Vital Signs 04/02/17 14:02 Temperature 97.7 F Pulse Rate 131 H Respiratory 17 Rate Blood Pressure 140/78 O2 Sat by Pulse 94 L Oximetry - Reevaluation(s) Reevaluation #1: 04/02/17 14:46 patient is clear for psychiatric eval EKG Findings - EKG Comments: EKG Findings:: EKG shows normal sinus rhythm rate of 100, [place] 126, QRS 94, QTC 428 Medical Decision Making - Medical Decision Making 37 male ER for psychiatric evaluation. Patient left emergency Department, eloped - Lab Data Result diagrams: 04/02/17 14:40 04/02/17 14:40 Lab Results 04/02/17 04/02/17 04/02/17 Range/Units 14:40 14:40 14:40 WBC 10.0 (3.8-10.6) k/uL RBC 5.48 (4.30-5.90) m/uL Hgb 16.4 (13.0-17.5) gm/dL Hct 50.1 (39.0-53.0) % MCV 91.5 (80.0-100.0) fL MCH 30.0 (25.0-35.0) pg MCHC 32.8 (31.0-37.0) g/dL RDW 14.2 (11.5-15.5) % Plt Count 330 (150-450) k/uL Neutrophils % 80 % Lymphocytes % 14 % Monocytes % 4 % Eosinophils % 2 % Basophils % 1 % Neutrophils # 8.0 H (1.3-7.7) k/uL Lymphocytes # 1.4 (1.0-4.8) k/uL Monocytes # 0.4 (0-1.0) k/uL Eosinophils # 0.2 (0-0.7) k/uL Basophils # 0.1 (0-0.2) k/uL PT (9.0-12.0) sec INR (<1.2) Sodium 140 (137-145) mmol/L Potassium 4.2 (3.5-5.1) mmol/L Chloride 105 (98-107) mmol/L Carbon Dioxide 28 (22-30) mmol/L Anion Gap 7 mmol/L BUN 11 (9-20) mg/dL Creatinine 1.00 (0.66-1.25) mg/dL Est GFR (MDRD) Af Amer >60 (>60 ml/min/1.73 sqM) Est GFR (MDRD) Non-Af >60 (>60 ml/min/1.73 sqM) Glucose 117 H (74-99) mg/dL Calcium 9.3 (8.4-10.2) mg/dL Phosphorus 2.4 L (2.5-4.5) mg/dL Magnesium 2.1 (1.6-2.3) mg/dL Total Bilirubin 0.2 (0.2-1.3) mg/dL AST 21 (17-59) U/L ALT 26 (21-72) U/L Alkaline Phosphatase 55 (38-126) U/L Total Creatine Kinase 60 (55-170) U/L CK-MB (CK-2) 0.3 (0.0-2.4) ng/mL CK-MB (CK-2) Rel Index 0.5 Total Protein 6.3 (6.3-8.2) g/dL Albumin 3.6 (3.5-5.0) g/dL Lipase 52 (23-300) U/L Urine Color Urine Appearance (Clear) Urine pH (5.0-8.0) Ur Specific [place] (1.001-1.035) Urine Protein (Negative) Urine Glucose (UA) (Negative) Urine Ketones (Negative) Urine Blood (Negative) Urine Nitrite (Negative) Urine Bilirubin (Negative) Urine Urobilinogen (<2.0) mg/dL Ur Leukocyte Esterase (Negative) Urine RBC (0-5) /hpf Urine WBC (0-5) /hpf Urine Bacteria (None) /hpf Hyaline Casts (0-2) /lpf Urine Mucus (None) /hpf Salicylates <1.0 mg/dL Urine Opiates Screen (NotDetected) Ur Oxycodone Screen (NotDetected) Urine Methadone Screen (NotDetected) Ur Propoxyphene Screen (NotDetected) Acetaminophen <10.0 ug/mL Ur Barbiturates Screen (NotDetected) U Tricyclic Antidepress (NotDetected) Ur Phencyclidine Scrn (NotDetected) Ur Amphetamines Screen (NotDetected) U Methamphetamines Scrn (NotDetected) U Benzodiazepines Scrn (NotDetected) Urine Cocaine Screen (NotDetected) U Marijuana (THC) Screen (NotDetected) Serum Alcohol <10 mg/dL 04/02/17 04/02/17 Range/Units 14:40 14:40 WBC (3.8-10.6) k/uL RBC (4.30-5.90) m/uL Hgb (13.0-17.5) gm/dL Hct (39.0-53.0) % MCV (80.0-100.0) fL MCH (25.0-35.0) pg MCHC (31.0-37.0) g/dL RDW (11.5-15.5) % Plt Count (150-450) k/uL Neutrophils % % Lymphocytes % % Monocytes % % Eosinophils % % Basophils % % Neutrophils # (1.3-7.7) k/uL Lymphocytes # (1.0-4.8) k/uL Monocytes # (0-1.0) k/uL Eosinophils # (0-0.7) k/uL Basophils # (0-0.2) k/uL PT 10.7 (9.0-12.0) sec INR 1.1 (<1.2) Sodium (137-145) mmol/L Potassium (3.5-5.1) mmol/L Chloride (98-107) mmol/L Carbon Dioxide (22-30) mmol/L Anion Gap mmol/L BUN (9-20) mg/dL Creatinine (0.66-1.25) mg/dL Est GFR (MDRD) Af Amer (>60 ml/min/1.73 sqM) Est GFR (MDRD) Non-Af (>60 ml/min/1.73 sqM) Glucose (74-99) mg/dL Calcium (8.4-10.2) mg/dL Phosphorus (2.5-4.5) mg/dL Magnesium (1.6-2.3) mg/dL Total Bilirubin (0.2-1.3) mg/dL AST (17-59) U/L ALT (21-72) U/L Alkaline Phosphatase (38-126) U/L Total Creatine Kinase (55-170) U/L CK-MB (CK-2) (0.0-2.4) ng/mL CK-MB (CK-2) Rel Index Total Protein (6.3-8.2) g/dL Albumin (3.5-5.0) g/dL Lipase (23-300) U/L Urine Color Yellow Urine Appearance Clear (Clear) Urine pH 6.0 (5.0-8.0) Ur Specific [place] 1.030 (1.001-1.035) Urine Protein 2+ H (Negative) Urine Glucose (UA) Negative (Negative) Urine Ketones Trace H (Negative) Urine Blood Negative (Negative) Urine Nitrite Negative (Negative) Urine Bilirubin Negative (Negative) Urine Urobilinogen 3.0 (<2.0) mg/dL Ur Leukocyte Esterase Trace H (Negative) Urine RBC 1 (0-5) /hpf Urine WBC 2 (0-5) /hpf Urine Bacteria Rare H (None) /hpf Hyaline Casts 20 H (0-2) /lpf Urine Mucus Moderate H (None) /hpf Salicylates mg/dL Urine Opiates Screen Detected H (NotDetected) Ur Oxycodone Screen Not Detected (NotDetected) Urine Methadone Screen Not Detected (NotDetected) Ur Propoxyphene Screen Not Detected (NotDetected) Acetaminophen ug/mL Ur Barbiturates Screen Not Detected (NotDetected) U Tricyclic Antidepress Not Detected (NotDetected) Ur Phencyclidine Scrn Not Detected (NotDetected) Ur Amphetamines Screen Not Detected (NotDetected) U Methamphetamines Scrn Not Detected (NotDetected) U Benzodiazepines Scrn Not Detected (NotDetected) Urine Cocaine Screen Not Detected (NotDetected) U Marijuana (THC) Screen Not Detected (NotDetected) Serum Alcohol mg/dL Disposition Clinical Impression: Depression, Suicidal ideation, Major depressive disorder, Anxiety Disposition: Left Against Medical Advice Condition: Undetermined Referrals: Mary Munoz MD [Primary Care Provider] - 1-2 days
[2017-04-02 14:52] LABS: Appearance,Urine Clear (Clear); Bacteria,Urine Rare /hpf; Basophils # (A) 0.1 k/uL (0-0.2); Basophils % (A) 1 %; Bilirubin,Urine Negative (Negative); CH 30.3; CHCM 33.3; Eosinophils # (A) 0.2 k/uL (0-0.7); Eosinophils % (A) 2 %; Glucose,Urine (UA) Negative (Negative); HCT 50.1 % (39.0-53.0); HDW 2.39; HGB 16.4 gm/dL (13.0-17.5); Ketones,Urine Trace (Negative); Leukocyte Esterase,Urine Trace (Negative); Luc # (Auto) 0.09; Luc % (Auto) 1; Lymphocytes # (A) 1.4 k/uL (1.0-4.8); Lymphocytes % (A) 14 %; MCHC 32.8 g/dL (31.0-37.0); MCV 91.5 fL (80.0-100.0); Monocytes # (A) 0.4 k/uL (0-1.0); Monocytes % (A) 4 %; Mucus,Urine Moderate /hpf; Neutrophils % (A) 80 %; Nitrite,Urine Negative (Negative); Particle Count 10511; Protein,Urine 2+ (Negative); RBC 5.48 m/uL (4.30-5.90); RBC,Urine 1 /hpf (0-5); RDW 14.2 % (11.5-15.5); UA Billing (MACRO vs. MICRO) MICRO; WBC (Perox) 9.85; WBC,Urine 2 /hpf (0-5)
[2017-04-02 15:00] LABS: ALT 26 U/L (21-72); AST 21 U/L (17-59); Acetaminophen <10.0 ug/mL; Alcohol <10 mg/dL; Alkaline Phosphatase 55 U/L (38-126); Anion Gap 7 mmol/L; Blood Urea Nitrogen 11 mg/dL (9-20); Calcium 9.3 mg/dL (8.4-10.2); Carbon Dioxide 28 mmol/L (22-30); Chloride 105 mmol/L (98-107); Glucose 117 mg/dL (74-99); Magnesium 2.1 mg/dL (1.6-2.3); Non-African American GFR(MDRD) >60 (>60 ml/min/1.73 sqM); Phosphorus 2.4 mg/dL (2.5-4.5); Potassium 4.2 mmol/L (3.5-5.1); Salicylate <1.0 mg/dL; Sodium 140 mmol/L (137-145); Total Bilirubin 0.2 mg/dL (0.2-1.3); Total Protein 6.3 g/dL (6.3-8.2)
[2017-04-02 15:24] LABS: Creatine Kinase MB 0.3 ng/mL (0.0-2.4)
[2017-04-02 15:45] LABS: INR 1.1 (<1.2); Prothrombin Time 10.7 sec (9.0-12.0)
== END 2017-04-02 16:23 | disposition left against medical advice (07) ==
LOC: EC 13:52
DX: F32.9 Major depressive disorder, single episode, unspecified (principal); R45.851 Suicidal ideations; F41.9 Anxiety disorder, unspecified; F17.200 Nicotine dependence, unspecified, uncomplicated; Z91.013 Allergy to seafood; Z53.29 Procedure and treatment not carried out because of patient's decision for other reasons
CPT/HCPCS: 99285; 96374; 96361 ×2; 82075; 36415; 93005; 80053; 82550; 82553; 83690; 83735; 84100; 85025; 85610; 81001; 80306; 83520 ×2; 80320; J2060

== ENCOUNTER 2020-02-07 20:22 | Emergency (ER) | payer MEDICARE, OTHER ==
[2020-02-07 20:31] VITALS: BP 134/75; PULSE 93; RESP 20; TEMP 98.6
[2020-02-07] MEDS ORDERED: DIPH,PERTUS(ACELL)TETVAC-LF 0.5 ML VIAL IM ONE (21:17)
[2020-02-07] MEDS ORDERED: LIDOCAINE 1% INJ 10MG/ML (20 ML MDV) SQ STA (21:17)
--- NOTE | 2020-02-07 22:58 | ED ---
General Adult HPI - General Chief complaint: Wound/Laceration Stated complaint: L Arm Lac Time Seen by Provider: 02/07/20 20:45 Source: patient, RN notes reviewed, old records reviewed Mode of arrival: ambulatory Limitations: no limitations - History of Present Illness Initial comments: 39-year-old male patient presents to ED with chief complaint left forearm laceration. Patient was using a razor blade to cut a piece of wood when it slipped causing laceration to the medial aspect of the left forearm. Denies any other acute complaints this time. Denies date of last tetanus. Systemic: Pt denies fatigue, fever/chills, rash. Pt denies weakness, night sweats, weight loss. Neuro: Pt denies headache, visual disturbances, syncope or pre-syncope. HEENT: Pt denies ocular discharge or irritation, otalgia, rhinorrhea, pharyngitis or notable lymphadenopathy. Cardiopulmonary: Pt denies chest pain, SOB, heart palpitations, dyspnea on exertion. Abdominal/GI: Pt denies abdominal pain, n/v/d. : Pt denies dysuria, burning w/ urination, frequency/urgency. Denies new onset urinary or bowel incontinence. MSK: Pt denies myalgia, loss of strength or function in extremities. Neuro: Pt denies new onset weakness, paresthesias. - Related Data Home Medications Medication Instructions Recorded Confirmed Amoxicillin 500 mg PO Q8H 04/02/17 04/02/17 HYDROcodone/APAP 7.5-325MG [[place] 1 tab PO Q4H PRN 04/02/17 04/02/17 7.5-325] Ibuprofen [Motrin] 800 mg PO Q6H PRN 04/02/17 04/02/17 Previous Rx's Medication Instructions Recorded ARIPiprazole [Abilify] 5 mg PO DAILY #30 tab 02/26/17 Venlafaxine HCl [Effexor XR] 75 mg PO DAILY #30 cap.er.24h 02/26/17 traZODone HCL [Desyrel] 100 mg PO HS #30 tab 02/26/17 Allergies Allergy/AdvReac Type Severity Reaction Status Date / Time Fish Containing Products Allergy Swelling Verified 02/07/20 20:31 [Fish] Review of Systems ROS Statement: Those systems with pertinent positive or pertinent negative responses have been documented in the HPI. ROS Other: All systems not noted in ROS Statement are negative. Past Medical History Past Medical History: Asthma Additional Past Medical History / Comment(s): bipolar/depression, lt sided kidney stone History of Any Multi-Drug Resistant Organisms: None Reported Past Surgical History: No Surgical Hx Reported Additional Past Surgical History / Comment(s): lithotripsy Past Anesthesia/Blood Transfusion Reactions: No Reported Reaction Past Psychological History: Bipolar, Depression Smoking Status: Current every day smoker Past Alcohol Use History: None Reported Past Drug Use History: Methamphetamine - Past Family History Father History Unknown: Yes Mother History Unknown: Yes General Exam - General Exam Comments Initial Comments: Constitutional: NAD, AOX3, Pt has pleasant affect. HEENT: NC/AT, trachea midline, neck supple, no lymphadenopathy. External ears appear normal, without discharge. Mucous membranes moist. Eyes PERRLA, EOM intact. There is no scleral icterus. No pallor noted. Cardiopulmonary: RRR, no murmurs, rubs or gallops, no JVD noted. Lungs CTAB in anterior and posterior young. No peripheral edema. Abdominal exam: Abdomen soft and non-distended. Abdomen non-tender to palpation in all 4 quadrants. Bowel sounds active in LLQ. No hepatosplenomegaly. No ecchymosis Neuro: CN II-XII grossly intact. No nuchal rigidity. No raccon eyes, no johnston sign, no hemotympanum. No cervical spinal tenderness. MSK: 3 cm laceration to the left medial mid shaft forearm region along the ulnar aspect. This area was vigorously irrigated and explored. There is no acute osseous process no foreign body no ligamentous involvement or any vascular involvement noted. Patient does have full active range of motion of fingers and sensation. Distal pulses are intact and equal. Approximated with 5 simple interrupted sutures.. Full active ROM in upper and lower extremities, 5/5 stregnth. Limitations: no limitations Course Vital Signs 02/07/20 20:27 Temperature 98.6 F Pulse Rate 93 Respiratory 20 Rate Blood Pressure 134/75 O2 Sat by Pulse 99 Oximetry Procedures - Orthopedic Splinting/Casting Injury #1 Side: left Upper Extremity Immobilizer: volar splint Medical Decision Making - Medical Decision Making 39-year-old male patient with the laceration. Patient also stable, afebrile. Laceration was irrigated and repaired. Patient was endorsing some pain distal to the laceration range of motion of his hand. Because of this patient was placed in a volar splint for possibility of ligamentous injury. Neurovascularly intact before and after splint placement. We'll be discharged with outpatient orthopedic follow-up and return precautions. Case discussed with Dr. Calvert. Disposition Clinical Impression: Laceration Disposition: HOME SELF-CARE Condition: Stable Instructions (If sedation given, give patient instructions): Laceration (ED) Additional Instructions: Continue to wear splint. Removed the first roll of [place] wrap every day for wound management. Monitor for redness or signs of infection. Follow-up with orthopedic consult tomorrow. Return to ER with any worsening symptoms. Please return for suture removal: Extremities: 7-10 days Please monitor for signs and symptoms of infection including: redness, warmth, drainage, discharge. Please return to ED if these signs or symptoms occur, new signs or symptoms develop or if condition worsens in anyway. Is patient prescribed a controlled substance at d/c from ED?: No Referrals: None,Stated [Primary Care Provider] - 1-2 days Eric Alvarez DO [Doctor of Osteopathic Medicine] - 1-2 days
== END 2020-02-07 23:04 | disposition home or self-care (01) ==
LOC: EC 20:22
DX: S51.812A Laceration without foreign body of left forearm, initial encounter (principal); Z23 Encounter for immunization; F17.200 Nicotine dependence, unspecified, uncomplicated; Z91.013 Allergy to seafood; W26.8XXA Contact with other sharp object(s), not elsewhere classified, initial encounter; Y93.89 Activity, other specified; Y92.009 Unspecified place in unspecified non-institutional (private) residence as the place of occurrence of the external cause
CPT/HCPCS: 90715; 90471; 99283; 29125; 12002; J2001

== ENCOUNTER 2021-08-28 10:53 | Emergency (ER) | payer OTHER ==
[2021-08-28 11:05] VITALS: BP 141/91; PULSE 99; RESP 18; TEMP 98.3
--- NOTE | 2021-08-28 11:40 | XR ---
EXAMINATION TYPE: XR elbow complete LT DATE OF EXAM: 08/28/2021 CLINICAL HISTORY: Fall injury with pain TECHNIQUE: Frontal, lateral and oblique images of the left elbow are obtained. COMPARISON: None FINDINGS: There is no acute fracture/dislocation evident in the left elbow. No abnormal fat pad sig ns are seen. The overlying soft tissue appears unremarkable. IMPRESSION: There is no acute fracture or dislocation in the left elbow.
--- NOTE | 2021-08-28 11:41 | XR ---
EXAMINATION TYPE: XR lumbar spine 2 or 3V DATE OF EXAM: 08/28/2021 CLINICAL HISTORY: Fall injury with pain TECHNIQUE: Frontal and lateral images of the lumbar spine are obtained. COMPARISON: CT abdomen and pelvis February 21, 2017 FINDINGS: There are 5 lumbar type vertebral bodies redemonstrated. The lumbar spine shows stable an d satisfactory alignment without evidence of acute fracture or dislocation. Vertebral body heights an d disk space heights remain within normal limits. Mild multilevel anterior spurring. Overlying soft t issue is unremarkable. IMPRESSION: No acute fracture or dislocation is seen in the lumbar spine.
--- NOTE | 2021-08-28 12:00 | ED ---
Fall HPI - General Chief Complaint: Fall Stated Complaint: Fall Time Seen by Provider: 08/28/21 11:07 Source: patient, RN notes reviewed Mode of arrival: ambulatory Limitations: no limitations - History of Present Illness Initial Comments: 41-year-old male present emergency from chief complaint trip and fall. Patient states he tripped over uneven sidewalk surface. Patient states he fell onto his left elbow. He states he has moderate discomfort head injury no loss conscious. He states he twisted wrong and his back having some discomfort. Patient denies any bowel bladder incontinence retention is anesthesias. Patient offers no other complaints. - Related Data Previous Rx's Medication Instructions Recorded Cyclobenzaprine [Flexeril] 10 mg PO TID PRN #15 tab 08/28/21 Ibuprofen [Motrin] 600 mg PO Q8HR PRN #20 tab 08/28/21 Allergies Allergy/AdvReac Type Severity Reaction Status Date / Time Fish Containing Products Allergy Swelling Verified 08/28/21 11:38 [Fish] Review of Systems ROS Statement: Those systems with pertinent positive or pertinent negative responses have been documented in the HPI. ROS Other: All systems not noted in ROS Statement are negative. Past Medical History Past Medical History: Asthma Additional Past Medical History / Comment(s): bipolar/depression, lt sided kidney stone History of Any Multi-Drug Resistant Organisms: None Reported Past Surgical History: No Surgical Hx Reported Additional Past Surgical History / Comment(s): lithotripsy Past Anesthesia/Blood Transfusion Reactions: No Reported Reaction Past Psychological History: Bipolar, Depression Smoking Status: Current every day smoker Past Alcohol Use History: None Reported Past Drug Use History: Methamphetamine - Past Family History Father History Unknown: Yes Mother History Unknown: Yes General Exam Limitations: no limitations General appearance: alert, in no apparent distress Head exam: Present: atraumatic, normocephalic, normal inspection Neck exam: Present: normal inspection, full ROM. Absent: tenderness, meningismus, lymphadenopathy Respiratory exam: Present: normal lung sounds bilaterally. Absent: respiratory distress, wheezes, rales, rhonchi, stridor Cardiovascular Exam: Present: regular rate, normal rhythm, normal heart sounds. Absent: systolic murmur, diastolic murmur, rubs, gallop, clicks GI/Abdominal exam: Present: soft, normal bowel sounds. Absent: distended, tenderness, guarding, rebound, rigid Extremities exam: Present: other (Left elbow there is mild tenderness full range of motion neurovascular intact no iris deformity no tenderness above or below.) Back exam: Present: full ROM, tenderness, muscle spasm, paraspinal tenderness. Absent: vertebral tenderness Skin exam: Present: warm, dry, intact, normal color. Absent: rash Course Vital Signs 08/28/21 11:01 Temperature 98.3 F Pulse Rate 99 Respiratory 18 Rate Blood Pressure 141/91 O2 Sat by Pulse 99 Oximetry Medical Decision Making - Medical Decision Making 41-year-old presented for a fall. X-rays unremarkable. Patient has back strain, elbow contusion patient we discharged in stable condition return parameters discussed. Disposition Clinical Impression: Fall, Left elbow contusion, Back strain Disposition: HOME SELF-CARE Condition: Stable Instructions (If sedation given, give patient instructions): Low Back Strain (ED), Arm Pain (ED) Additional Instructions: Please return to the Emergency Department if symptoms worsen or any other concerns. Prescriptions: Cyclobenzaprine [Flexeril] 10 mg PO TID PRN #15 tab PRN Reason: Muscle Spasm Ibuprofen [Motrin] 600 mg PO Q8HR PRN #20 tab PRN Reason: Pain Is patient prescribed a controlled substance at d/c from ED?: No Referrals: [facility] [Primary Care Provider] - 1-2 days Time of Disposition: 12:00
== END 2021-08-28 12:22 | disposition home or self-care (01) ==
LOC: EC 10:53
DX: S39.012A Strain of muscle, fascia and tendon of lower back, initial encounter (principal); S50.02XA Contusion of left elbow, initial encounter; F17.200 Nicotine dependence, unspecified, uncomplicated; J45.909 Unspecified asthma, uncomplicated; Z91.013 Allergy to seafood; W01.0XXA Fall on same level from slipping, tripping and stumbling without subsequent striking against object, initial encounter; Y92.009 Unspecified place in unspecified non-institutional (private) residence as the place of occurrence of the external cause
CPT/HCPCS: 72100; 99284

== ENCOUNTER 2022-05-07 19:22 | Emergency (ER) | payer MEDICARE, OTHER ==
[2022-05-07 19:26] VITALS: TEMP 97.6
[2022-05-07] MEDS ORDERED: NALOXONE 0.4 MG/ML 1 ML VIAL IV STA (19:41)
[2022-05-07] MEDS ORDERED: SODIUM CHLORIDE 0.9% 1,000 ML IV STA ×2 (19:41→21:01)
[2022-05-07] MEDS ORDERED: ONDANSETRON 4 MG/2 ML VIAL IVP STA (19:41)
--- NOTE | 2022-05-07 19:47 | ED ---
Overdose HPI - General Chief Complaint: Overdose Stated Complaint: Overdose Time Seen by Provider: 05/07/22 19:36 Source: patient, police, RN notes reviewed Limitations: no limitations - History of Present Illness Initial Comments: This is a 42-year-old male who presents to the emergency department for an overdose. Patient was brought in by the police department who found him in a drug raid. He was found slumped over on the ground in the house he was found in. Patient admitted to snorting meth, which he does very frequently. States that this feels different than any of the other times he has used meth. Denies using any other substances, but is unsure if the meth was laced with something else. Currently feels very nauseous and "awful". At the time of arrival, no Na rcan had been administered. MD Complaint: accidental overdose - Related Data Previous Rx's Medication Instructions Recorded Cyclobenzaprine [Flexeril] 10 mg PO TID PRN #15 tab 08/28/21 Ibuprofen [Motrin] 600 mg PO Q8HR PRN #20 tab 08/28/21 Allergies Allergy/AdvReac Type Severity Reaction Status Date / Time Fish Containing Products Allergy Swelling Verified 08/28/21 11:38 [Fish] Review of Systems ROS Statement: Those systems with pertinent positive or pertinent negative responses have been documented in the HPI. ROS Other: All systems not noted in ROS Statement are negative. Past Medical History Past Medical History: Asthma Additional Past Medical History / Comment(s): bipolar/depression, lt sided kidney stone History of Any Multi-Drug Resistant Organisms: None Reported Past Surgical History: No Surgical Hx Reported Additional Past Surgical History / Comment(s): lithotripsy Past Anesthesia/Blood Transfusion Reactions: No Reported Reaction Past Psychological History: Bipolar, Depression Smoking Status: Current every day smoker Past Alcohol Use History: None Reported Past Drug Use History: Methamphetamine - Past Family History Father History Unknown: Yes Mother History Unknown: Yes General Exam Limitations: no limitations General appearance: alert Head exam: Present: atraumatic, normocephalic, normal inspection Eye exam: Present: other (Pinpoint but reactive pupils bilaterally) Respiratory exam: Present: normal lung sounds bilaterally. Absent: respiratory distress, wheezes, rales, rhonchi, stridor Cardiovascular Exam: Present: normal rhythm, tachycardia GI/Abdominal exam: Present: soft, normal bowel sounds. Absent: distended, tenderness, guarding, rebound, rigid Neurological exam: Present: alert Skin exam: Present: warm, dry, intact, normal color. Absent: rash Course Vital Signs 05/07/22 05/07/22 05/07/22 19:23 19:46 20:47 Temperature 97.6 F Pulse Rate 104 H 101 H Respiratory 12 12 14 Rate Blood Pressure 126/89 147/104 O2 Sat by Pulse 100 98 Oximetry 05/07/22 21:48 Temperature Pulse Rate 104 H Respiratory 18 Rate Blood Pressure 155/96 O2 Sat by Pulse 97 Oximetry Medical Decision Making - Medical Decision Making This is a 42-year-old male who presents to the emergency department for possible overdose. Was pt. sent in by a medical professional or institution? @ -No Did you speak to anyone other than the patient for history? @ -Police Did you review nursing and triage notes? @ -Agree, accurate with regards to the patient's symptoms. Were old charts reviewed? @ -No Differential Diagnosis? @ Differential Altered Mental Status: Hypoglycemia, DKA, hypercapnia, ETOH, overdose, CO poisoning, trauma, myxedema coma, HTN encephalopathy, infection, encephalitis, psychosis, intercranial hemorrhage, hepatic encephalopathy, meningitis, CVA, this is not meant to be an all-inclusive list EKG interpreted by me (3pts min.)? @ -Normal sinus rhythm. Ventricular rate 89 bpm, MS interval 139 ms, QRS durat ion 100 ms, QTC 391 ms. What testing was considered but not performed? (CT, X-rays, U/S, labs)? Why? @ -None What meds were considered but not given? Why? @ -None Did you discuss the management of the patient with other professionals? @ -No Did you reconcile home meds? @ -No Was smoking cessation discussed for >3mins.? @ -Yes, I discussed smoking cessation for greater than 3 minutes. The risk of smoking were discussed with the patient including but not limited to risks of cancer, stroke, coronary artery disease and COPD. Also discussed with patient were multiple methods of quitting smoking. Lastly we discussed the financial cost of smoking. Was critical care preformed (if so, how long)? @ -No Were there social determinants of health that impacted care today? How? (Homelessness, low income, unemployed, alcoholism, drug addiction, transporta tion, low edu. Level, literacy, decrease access to med. care, correction, rehab)? @ -Drug addiction Was there de-escalation of care discussed even if they declined? (Discuss DNR or withdrawal of care, Hospice)? @ -No What co-morbidities impacted this encounter? (DM, HTN, Smoking, COPD, CAD, Cancer, CVA, Hep., AIDS, mental health diagnosis, sleep apnea, morbid obesity)? @ -None Was patient admitted / discharged? @ -Discharged. Lab work obtained and found to be nonactionable. He was given a dose of Narcan, it is unclear if this caused him to be less altered or not, as he may have had some improvement. Urine drug screen consistent with methamphetamine and amphetamine. He was given IV fluids and Zofran, which he states was helpful. He felt like he had some mild fullness in his throat, but denied any shortness of breath. Reports that he continued to feel fairly dehydrated. He was subsequently given a dose of Decadron for the throat fullness and another liter of IV fluids. States that the symptoms further improved. Overall patient felt much better. Correction clearance was provided and he was discharged into the custody of police. Drug Therapy requiring intensive monitoring for toxicity (Heparin, Nitro, Insulin, Cardizem)? @ -None Were any procedures done? @ -No Diagnosis/symptom? @ -Methamphetamine abuse Acute, or Chronic, or Acute on Chronic? @ -Chronic Uncomplicated (without systemic symptoms) or Complicated (systemic symptoms)? @ -Complicated, caused him to be altered with associated nausea and vomiting Side effects of treatment? @ -No treatment administered Exacerbation, Progression, or Severe Exacerbation] @ -Not applicable Poses a threat to life or bodily function? @ -Yes, this may lead to overdose and if he continues to use this. Return precautions reviewed in depth, the patient is instructed to return to the emergency department with any new, worsening, or concerning symptoms. Patient verbalized understanding. This case was discussed in detail with the attending ED physician. Presentation, findings, and treatment plan discussed in detail as well. - Lab Data Result diagrams: 05/07/22 19:58 05/07/22 19:58 Lab Results 05/07/22 05/07/22 05/07/22 Range/Units 19:58 19:58 19:58 WBC 12.7 H (3.8-10.6) k/uL RBC 5.46 (4.30-5.90) m/uL Hgb 16.5 (13.0-17.5) gm/dL Hct 47.3 (39.0-53.0) % MCV 86.6 (80.0-100.0) fL MCH 30.1 (25.0-35.0) pg MCHC 34.8 (31.0-37.0) g/dL RDW 12.6 (11.5-15.5) % Plt Count 240 (150-450) k/uL MPV 8.5 Neutrophils % 75 % Lymphocytes % 16 % Monocytes % 6 % Eosinophils % 1 % Basophils % 1 % Neutrophils # 9.6 H (1.3-7.7) k/uL Lymphocytes # 2.0 (1.0-4.8) k/uL Monocytes # 0.8 (0-1.0) k/uL Eosinophils # 0.1 (0-0.7) k/uL Basophils # 0.1 (0-0.2) k/uL Sodium 140 (137-145) mmol/L Potassium 4.3 (3.5-5.1) mmol/L Chloride 108 H (98-107) mmol/L Carbon Dioxide 23 (22-30) mmol/L Anion Gap 9 mmol/L BUN 10 (9-20) mg/dL Creatinine 0.87 (0.66-1.25) mg/dL Est GFR (CKD-EPI)AfAm >90 (>60 ml/min/1.73 sqM) Est GFR (CKD-EPI)NonAf >90 (>60 ml/min/1.73 sqM) Glucose 88 (74-99) mg/dL Plasma Lactic Acid [place] 1.5 (0.7-2.0) mmol/L Calcium 9.4 (8.4-10.2) mg/dL Total Bilirubin 0.6 (0.2-1.3) mg/dL AST 24 (17-59) U/L ALT 18 (4-49) U/L Alkaline Phosphatase 69 (38-126) U/L Creatine Kinase 120 (55-170) U/L Troponin I (0.000-0.034) ng/mL Total Protein 7.0 (6.3-8.2) g/dL Albumin 4.2 (3.5-5.0) g/dL Amylase 41 (30-110) U/L Lipase 142 (23-300) U/L Urine Color Urine Appearance (Clear) Urine pH (5.0-8.0) Ur Specific [place] (1.001-1.035) Urine Protein (Negative) Urine Glucose (UA) (Negative) Urine Ketones (Negative) Urine Blood (Negative) Urine Nitrite (Negative) Urine Bilirubin (Negative) Urine Urobilinogen (<2.0) mg/dL Ur Leukocyte Esterase (Negative) Urine RBC (0-5) /hpf Urine WBC (0-5) /hpf Urine Bacteria (None) /hpf Hyaline Casts (0-2) /lpf Urine Mucus (None) /hpf Urine Yeast (Budding) (None) /hpf Salicylates <1.0 mg/dL Urine Opiates Screen (NotDetected) Ur Oxycodone Screen (NotDetected) Urine Methadone Screen (NotDetected) Ur Propoxyphene Screen (NotDetected) Acetaminophen <10.0 ug/mL Ur Barbiturates Screen (NotDetected) U Tricyclic Antidepress (NotDetected) Ur Phencyclidine Scrn (NotDetected) Ur Amphetamines Screen (NotDetected) U Methamphetamines Scrn (NotDetected) U Benzodiazepines Scrn (NotDetected) Urine Cocaine Screen (NotDetected) U Marijuana (THC) Screen (NotDetected) Serum Alcohol <10 mg/dL 05/07/22 05/07/22 Range/Units 19:58 20:52 WBC (3.8-10.6) k/uL RBC (4.30-5.90) m/uL Hgb (13.0-17.5) gm/dL Hct (39.0-53.0) % MCV (80.0-100.0) fL MCH (25.0-35.0) pg MCHC (31.0-37.0) g/dL RDW (11.5-15.5) % Plt Count (150-450) k/uL MPV Neutrophils % % Lymphocytes % % Monocytes % % Eosinophils % % Basophils % % Neutrophils # (1.3-7.7) k/uL Lymphocytes # (1.0-4.8) k/uL Monocytes # (0-1.0) k/uL Eosinophils # (0-0.7) k/uL Basophils # (0-0.2) k/uL Sodium (137-145) mmol/L Potassium (3.5-5.1) mmol/L Chloride (98-107) mmol/L Carbon Dioxide (22-30) mmol/L Anion Gap mmol/L BUN (9-20) mg/dL Creatinine (0.66-1.25) mg/dL Est GFR (CKD-EPI)AfAm (>60 ml/min/1.73 sqM) Est GFR (CKD-EPI)NonAf (>60 ml/min/1.73 sqM) Glucose (74-99) mg/dL Plasma Lactic Acid [place] (0.7-2.0) mmol/L Calcium (8.4-10.2) mg/dL Total Bilirubin (0.2-1.3) mg/dL AST (17-59) U/L ALT (4-49) U/L Alkaline Phosphatase (38-126) U/L Creatine Kinase (55-170) U/L Troponin I <0.012 (0.000-0.034) ng/mL Total Protein (6.3-8.2) g/dL Albumin (3.5-5.0) g/dL Amylase (30-110) U/L Lipase (23-300) U/L Urine Color Yellow Urine Appearance Cloudy (Clear) Urine pH 7.0 (5.0-8.0) Ur Specific [place] 1.019 (1.001-1.035) Urine Protein Trace H (Negative) Urine Glucose (UA) Negative (Negative) Urine Ketones Negative (Negative) Urine Blood Negative (Negative) Urine Nitrite Negative (Negative) Urine Bilirubin Negative (Negative) Urine Urobilinogen <2.0 (<2.0) mg/dL Ur Leukocyte Esterase Negative (Negative) Urine RBC 3 (0-5) /hpf Urine WBC 2 (0-5) /hpf Urine Bacteria Rare H (None) /hpf Hyaline Casts 1 (0-2) /lpf Urine Mucus Few H (None) /hpf Urine Yeast (Budding) Few H (None) /hpf Salicylates mg/dL Urine Opiates Screen Not Detected (NotDetected) Ur Oxycodone Screen Not Detected (NotDetected) Urine Methadone Screen Not Detected (NotDetected) Ur Propoxyphene Screen Not Detected (NotDetected) Acetaminophen ug/mL Ur Barbiturates Screen Not Detected (NotDetected) U Tricyclic Antidepress Not Detected (NotDetected) Ur Phencyclidine Scrn Not Detected (NotDetected) Ur Amphetamines Screen Detected H (NotDetected) U Methamphetamines Scrn Detected H (NotDetected) U Benzodiazepines Scrn Not Detected (NotDetected) Urine Cocaine Screen Not Detected (NotDetected) U Marijuana (THC) Screen Not Detected (NotDetected) Serum Alcohol mg/dL Disposition Clinical Impression: Methamphetamine abuse Disposition: HOME SELF-CARE Instructions (If sedation given, give patient instructions): Methamphetamine Abuse (ED), Polysubstance Abuse (ED), Adult Overdose (ED) Additional Instructions: Return to the emergency department with any new, worsening, or concerning symptoms. You need to refrain from using methamphetamine or other illicit substances, as this will continue to negatively impact your health. Follow up with your primary care provider in 1-2 days. Is patient prescribed a controlled substance at d/c from ED?: No Referrals: None,Stated [Primary Care Provider] - 1-2 days
[2022-05-07 20:11] LABS: Basophils # (A) 0.1 k/uL (0-0.2); Basophils % (A) 1 %; Eosinophils # (A) 0.1 k/uL (0-0.7); Eosinophils % (A) 1 %; HCT 47.3 % (39.0-53.0); HGB 16.5 gm/dL (13.0-17.5); Lymphocytes % (A) 16 %; MCH 30.1 pg (25.0-35.0); MCHC 34.8 g/dL (31.0-37.0); MCV 86.6 fL (80.0-100.0); Mean Platelet Volume 8.5; Monocytes # (A) 0.8 k/uL (0-1.0); Monocytes % (A) 6 %; Neutrophils # (A) 9.6 k/uL (1.3-7.7); Neutrophils % (A) 75 %; Platelet Count 240 k/uL (150-450); RBC 5.46 m/uL (4.30-5.90); RDW 12.6 % (11.5-15.5); WBC 12.7 k/uL (3.8-10.6)
[2022-05-07 20:22] LABS: ALT 18 U/L (4-49); AST 24 U/L (17-59); Acetaminophen <10.0 ug/mL; African American GFR (CKD) >90 (>60 ml/min/1.73 sqM); Albumin 4.2 g/dL (3.5-5.0); Alcohol <10 mg/dL; Alkaline Phosphatase 69 U/L (38-126); Amylase 41 U/L (30-110); Anion Gap 9 mmol/L; Blood Urea Nitrogen 10 mg/dL (9-20); Calcium 9.4 mg/dL (8.4-10.2); Carbon Dioxide 23 mmol/L (22-30); Chloride 108 mmol/L (98-107); Creatine Kinase 120 U/L (55-170); Glucose 88 mg/dL (74-99); Lipase 142 U/L (23-300); Non-African American GFR(CKD) >90 (>60 ml/min/1.73 sqM); Potassium 4.3 mmol/L (3.5-5.1); Salicylate <1.0 mg/dL; Sodium 140 mmol/L (137-145); Total Bilirubin 0.6 mg/dL (0.2-1.3)
[2022-05-07] MEDS ORDERED: DEXAMETHASONE SOD PHOSPHATE 10 MG/ML 1 ML VIAL IVP STA (21:01)
[2022-05-07 21:03] LABS: Appearance,Urine Cloudy (Clear); Bacteria,Urine Rare /hpf; Bilirubin,Urine Negative (Negative); Blood,Urine Negative (Negative); Budding Yeast,Urine Few /hpf; Color,Urine Yellow; Glucose,Urine (UA) Negative (Negative); Hyaline Casts,Urine 1 /lpf (0-2); Ketones,Urine Negative (Negative); Leukocyte Esterase,Urine Negative (Negative); Mucus,Urine Few /hpf; Nitrite,Urine Negative (Negative); Protein,Urine Trace (Negative); RBC,Urine 3 /hpf (0-5); Specific Gravity,Urine 1.019 (1.001-1.035); Urobilinogen,Urine <2.0 mg/dL (<2.0); WBC,Urine 2 /hpf (0-5)
[2022-05-07 21:13] LABS: Amphetamine Screen,Urine Detected (NotDetected); Barbiturate Screen,Urine Not Detected (NotDetected); Benzodiazepines Screen,Urine Not Detected (NotDetected); Cocaine Screen,Urine Not Detected (NotDetected); Methadone Screen, Urine Not Detected (NotDetected); Opiate Screen,Urine Not Detected (NotDetected); Oxycodone Screen, Urine Not Detected (NotDetected); Phencyclidine Screen,Urine Not Detected (NotDetected); Tricyclic Antidepressant,Urine Not Detected (NotDetected); Urn Cannabinoid Scrn Not Detected (NotDetected)
[2022-05-07 21:50] VITALS: BP 155/96; PULSE 104; RESP 18
== END 2022-05-07 22:19 | disposition home or self-care (01) ==
LOC: EC 19:22
DX: T43.651A Poisoning by methamphetamines accidental (unintentional), initial encounter (principal); J45.909 Unspecified asthma, uncomplicated; F17.200 Nicotine dependence, unspecified, uncomplicated; F31.9 Bipolar disorder, unspecified; Z91.013 Allergy to seafood
CPT/HCPCS: 36415; 93005; 80053; 82150; 82550; 83605; 83690; 84484; 85025; 81001; 80306; 80143; 80179; 99284; 96374; 96375 ×2; 96361 ×2; G0480; J1100; J2310; J2405; 80320